=== PATIENT | male | born 1960 | race Two or more races ===

== ENCOUNTER 2018-06-11 08:58 | Emergency (ER) | payer OTHER ==
[~2018-06-11] VITALS: Ht 185.4 cm; Wt 103.4 kg
[2018-06-11 09:20] VITALS: BP 139/89
== END 2018-06-11 11:26 | disposition home or self-care (01) ==
LOC: ER 08:58
DX: J98.11 Atelectasis (principal); R50.9 Fever, unspecified; R05 Cough; R07.0 Pain in throat
CPT/HCPCS: 71046